=== PATIENT | male | born 1945 | race Caucasian/White ===

== ENCOUNTER 2023-12-18 02:29 | Emergency (ER) | payer OTHER, SELFPAY ==
[2023-12-18 02:32] VITALS: BP 146/86
--- NOTE | 2023-12-18 02:47 | ED.GENMED ---
History of Present Illness
General
Chief Complaint: Male Genito-Urinary Symptoms
Time Seen by Provider: 12/18/23 02:45
Travel History
Have you had any contact with someone who has COVID-19?: No
Do you have any symptoms of coronavirus? Fever > 100 degrees, chills, cough, shortness of breath, sore throat, loss of taste or smell, muscle aches, or headache?: No
History of Present Illness
History of Present Illness:
HPI: The patient presents with gross hematuria that started a couple of weeks ago which was mild and then became elevated more significant last week. He has a history of recent Mohs surgery. He is compliant with taking aspirin on a daily basis
related to coronary stents. He has no abdominal or flank pain. His symptoms worsened tonight to the point that he could not urinate however he then it was able to void some.
EXAM:
GENERAL: Well appearing in no distress
HEENT: Moist oral mucosa, ecchymosis noted in the right periorbital region along with surgical wound to the right forehead
ABDOMEN: Soft with no peritoneal signs, no tenderness, no CVA tenderness
NEUROLOGIC: Excellent strength all extremities, no coordination deficits
PSYCHIATRIC: Appropriate mental status, normal insight and judgement
EXTREMITIES: Nontender, no edema, moves all extremities equally
SKIN: No rash, no lesions
TIME OF INITIAL ENCOUNTER: 2:55 AM
NUMBER AND COMPLEXITY OF PROBLEMS ADDRESSED AT THE ENCOUNTER
� Chronic conditions affecting care: History of prostate cancer status post radiation COPD, CAD/GA, high blood pressure, diabetes
� Acute Exacerbation and/or Progression of Chronic Illness: This is an acute problem
� Differential Diagnosis includes: Hemorrhagic cystitis, gross hematuria, urinary retention
AMOUNT AND/OR COMPLEXITY OF DATA TO BE REVIEWED AND ANALYZED
� I performed an independent evaluation of and my interpretation is:
EKG:
CT:
X-rays:
Laboratory Studies: White count 10.8, hemoglobin normal at 15.5, platelets normal, renal function normal, urinalysis shows an abundance of red cells, 1+ leukocyte esterase noted
Other: Bladder scan 30+ mL urine
� Review of other/old records: No old records available for review in [facility]
� Clinical information was obtained by an independent historian: Spoke to at bedside
� Prescriptions/Medications Considered but not given:
� Further testing considered but not performed: Considered imaging however the patient has no pain and is not in retention
RISK OF COMPLICATIONS AND/OR MORBIDITY OR MORTALITY OF PATIENT MANAGEMENT
� Social determinants of health affecting care: Lives at home
� Discussion with other providers:
� Escalation of care including admission/observation vs risk of discharge considered: Bladder scan had only 30+ mL of urine. He has been seen by urologist at [place] but thinks he may have trouble getting into see them. I
have also given him contact information for local urologist. Unclear etiology of gross hematuria however he is not currently in retention.
Phy Exam
Physical Exam
Physical Exam:
See HPI
Course
Orders/Labs/Results
Orders:
Orders
12/18/23 03:13
Basic Metabolic Panel Urgent
Complete Blood Count/With Diff Urgent
Urinalysis Reflex To Culture Urgent
Date Specimen was Collected: 12/18/23
Time Specimen was Collected: 03:04
Urine Microscopic Reflex Cult Urgent
Urine Culture Urgent
SYLVIA Source: U
Specimen Description:
Date Specimen was Collected: 12/18/23
Time Specimen was Collected: 03:04
Abnormal Lab Results
12/18/23
03:13
Absolute Neuts (auto) 6.7 H 10^3/uL
(1.4-6.5)
Absolute Monos (auto) 0.9 H 10^3/uL
(0.1-0.6)
Glucose 128 H mg/dl
(70-99)
Urine Ketones Trace A
(Negative)
Ur Occult Blood Reflex 4+ A
(Negative)
Leukocyte Esterase Rfl 1+ A
(Negative)
Urine RBC >100 A /HPF
(0-2)
Urine Albumin (Reflex) 3+ A
(Neg - Trace)
12/18/23 03:13
12/18/23 03:13
Vital Signs
Initial and Last Documented VS:
Initial Vital Signs
Temp Pulse Resp BP Pulse Ox
98.1 F 76 16 146/86 92
12/18/23 02:32 12/18/23 02:32 12/18/23 02:32 12/18/23 02:32 12/18/23 02:32
Last Documented Vital Signs
Temp Pulse Resp BP Pulse Ox
98.1 F 76 16 146/86 92
12/18/23 02:32 12/18/23 02:32 12/18/23 02:32 12/18/23 02:32 12/18/23 02:32
*Critical Care Note
Total Time (30-74mins, 75-104mins- exclusive of procedures): Not Applicable
ED Attending Note
-
Portions of this chart may have been created with voice recognition software.� Occasional wrong word or��sound alike� substitutions may have occurred due to the inherent limitations of voice recognition software.
Discharge Plan
Departure
Patient Disposition: Home (Routine Discharge)
Date of Disposition: 12/18/23
Time of Disposition: 05:00
Patient with high blood pressure during this ER visit?: Yes
Discharge Problem:
Hematuria
Instructions: BLOOD PRESSURE
Prescriptions:
New
cephalexin 500 mg capsule
500 mg PO BID Qty: 14 0RF
No Action
atorvastatin 40 mg Tablet
40 mg PO QPM
metformin 500 mg Tablet
500 mg PO DAILY
amlodipine 5 mg Tablet
5 mg PO DAILY
aspirin 81 mg Tablet
81 mg PO DAILY
metoprolol succinate 25 mg Tablet Extended Release 24 Hr
25 mg PO BID
Referrals:
Wan Haines MD [Family Provider] -
Activity Restrictions/Additional Instructions:
Your white count, hemoglobin, platelet count and kidney function are all normal. Urinalysis shows blood in the urine without any definite sign of infection however it is tough to say that there is there is not an infection in the urine. The urine
culture will be pending. I recommend that you follow-up with either your [facility] urologist or a urologist with [facility]. I sent a prescription for an antibiotic to your pharmacy.
Interventions
Interventions:
*Risk Screen - Suicide Last Done: 12/18/23 02:32
*General Assessment Last Done: 12/18/23 02:32
*Neglect/Abuse Screening Last Done: 12/18/23 02:32
ED- Fall Risk Assessment Last Done: 12/18/23 03:10
ED-Male Genitourinary Assessment Last Done: 12/18/23 03:12
Discharge Date and Time
Print Language: SWEDISH
[2023-12-18 03:29] LABS: % Basophils 0.9 % (0-2); % Eosinophils 4.1 % (0-6); % Immature Granulocytes 0.4 % (0-0.5); % Lymphocytes 24.2 % (20.5-51.1); % Monocytes 8.5 % (1.7-9.3); % Neutrophils 61.9 % (42.2-75.2); Absolute Basophils 0.1 10^3/uL (0-0.2); Absolute Eosinophils 0.4 10^3/uL (0-0.7); Absolute Lymphocytes 2.6 10^3/uL (1.2-3.4); Absolute Monocytes 0.9 10^3/uL (0.1-0.6); Absolute Neutrophils 6.7 10^3/uL (1.4-6.5); Hematocrit 44.3 % (39.0-52.0); Hemoglobin 15.5 g/dL (13.0-18.0); Mean Corpuscular Hgb 30.1 pg (27.0-31.0); Mean Platelet Volume 9.3 fL (7.4-10.4); Nucleated Red Blood Cells % 0 % (-); Platelet Count 169 10^3/uL (130-400); Red Blood Cell Count 5.15 10^6/uL (4.70-6.10); Red Cell Dist. Width 13.2 % (11.5-14.5); White Blood Cell Count 10.8 10^3/uL (4.8-10.8)
[2023-12-18 03:37] LABS: Urine Albumin 3+ (Neg - Trace); Urine Bilirubin Negative (Negative); Urine Character Bloody (Clear); Urine Color Red; Urine Glucose Negative (Negative); Urine Ketone Trace (Negative); Urine Leukocyte 1+ (Negative); Urine Nitrite Negative (Negative); Urine Occult Blood 4+ (Negative); Urine Specific Gravity 1.015 (<1.030); Urine Urobilinogen Negative (Neg - 1+)
[2023-12-18 03:43] LABS: Urine Red Blood Cell >100 /HPF (0-2)
[2023-12-18 03:54] LABS: Blood Urea Nitrogen 19 mg/dl (9-20); Calcium 9.5 mg/dl (8.4-10.2); Carbon Dioxide 24 mmol/L (22-30); Chloride 105 mmol/L (98-107); Glucose 128 mg/dl (70-99); Potassium 4.3 mmol/L (3.5-5.1); Sodium 137 mmol/L (135-145); eGFR > 60.00
[2023-12-18] MEDS: KEFLEX 500 MG PO (05:08)
[2023-12-18 05:15] VITALS: BP 138/77
== END 2023-12-18 05:15 | disposition home or self-care (01) ==
LOC: EMR 02:29
PROVIDERS: EMERGENCY PHYSICIAN Emergency Medicine; FAMILY PHYSICIAN Internal Medicine
DX: R31.0 Gross hematuria (principal)
CPT/HCPCS: 99283; 80048; 81003; 81015; 85025; 87086

== ENCOUNTER → 2023-12-28 09:10 | Outpatient (REF) | payer OTHER, SELFPAY | LOC: HWRAD 09:10 | PROVIDERS: ATTENDING PHYSICIAN Specialist; FAMILY PHYSICIAN Internal Medicine | DX: R31.0 Gross hematuria (principal) | CPT/HCPCS: 74178; Q9967 ==

== ENCOUNTER 2024-02-02 06:09 | Day surgery (SDC) | payer OTHER, SELFPAY ==
[2024-01-31 10:11] LABS: APTT 30.5 Sec (23.4-35.0)
--- NOTE | 2024-02-01 08:15 | PTCARENOTE ---
Patients 01/30 EKG abnormal- reviewed by Dr. Ibanez, stated Ok if stable- no additional interventions indicated.
[2024-02-01 11:13] VITALS: BMI 25.9
[2024-02-02] VITALS (17 sets, daily range): BP systolic 97–189; BP diastolic 46–95; BMI 25.9
[2024-02-02 08:31] LABS: Glucose - Point of Care 122 mg/dl (70-99)
[2024-02-02] MEDS: NORMOSOL-R 1000 IV (08:39)
[2024-02-02] MEDS: CYSVIEW KIT 100 MG INTRAVES (08:53)
[2024-02-02] MEDS: SYRINGE NON-PUMP 50 ML IRRIG ×2 (11:24→11:25)
[2024-02-02] MEDS: SYRINGE NON-PUMP 50 MG IRRIG ×2 (11:24→11:25)
--- NOTE | 2024-02-02 11:31 | PTCARENOTE ---
Gemcitibine instilled by Dr Larsen at 1125, now dwelling x 45 min
[2024-02-02] MEDS: Pyridium 200 MG PO (12:28)
== END 2024-02-02 13:08 | disposition home or self-care (01) ==
LOC: SDS 06:09
PROVIDERS: ATTENDING PHYSICIAN Specialist; FAMILY PHYSICIAN Internal Medicine; OTHER PHYSICIAN Internal Medicine Cardiovascular Disease
DX: D29.1 Benign neoplasm of prostate (principal); C67.9 Malignant neoplasm of bladder, unspecified
CPT/HCPCS: 52601; 51720; 88307; 36415; 82962; 85610; 85730; 93005; A9589; J9201

== ENCOUNTER 2024-04-05 06:03 | Day surgery (SDC) | payer OTHER, SELFPAY ==
[2024-04-03 08:00] VITALS: BMI 26.7
[2024-04-03 10:42] LABS: Hematocrit 44.6 % (39.0-52.0); Hemoglobin 15.1 g/dL (13.0-18.0); Mean Corp Hgb Conc. 33.9 g/dL (33.0-37.0); Mean Corpuscular Hgb 30.7 pg (27.0-31.0); Mean Corpuscular Volume 90.7 fL (80.0-94.0); Mean Platelet Volume 10.2 fL (7.4-10.4); Platelet Count 195 10^3/uL (130-400); Red Blood Cell Count 4.92 10^6/uL (4.70-6.10); Red Cell Dist. Width 13.9 % (11.5-14.5); White Blood Cell Count 8.9 10^3/uL (4.8-10.8)
[2024-04-03 11:08] LABS: Blood Urea Nitrogen 16 mg/dl (9-20); Calcium 9.3 mg/dl (8.4-10.2); Carbon Dioxide 27 mmol/L (22-30); Chloride 103 mmol/L (98-107); Estimated Creatinine Clearance 68 ml/min; Glucose 98 mg/dl (70-99); Potassium 4.6 mmol/L (3.5-5.1); Sodium 141 mmol/L (135-145); eGFR > 60.00
[2024-04-05] VITALS (11 sets, daily range): BP systolic 97–141; BP diastolic 48–92; BMI 26.7
[2024-04-05 11:18] LABS: Glucose - Point of Care 112 mg/dl (70-99)
[2024-04-05] MEDS: CYSVIEW KIT 100 MG INTRAVES (11:25)
[2024-04-05] MEDS: TYLENOL 1000 MG PO (11:29)
[2024-04-05] MEDS: NORMOSOL-R/PLASMALYTE-A 1000 IV (11:42)
[2024-04-05] MEDS: SYRINGE NON-PUMP 50 MG IRRIG (12:54)
[2024-04-05] MEDS: SYRINGE NON-PUMP 50 ML IRRIG (12:54)
[2024-04-05 13:08] LABS: Glucose - Point of Care 124 mg/dl (70-99)
[2024-04-05] MEDS: Pyridium 200 MG PO (13:27)
--- NOTE | 2024-04-05 13:34 | SUR.PHASEI ---
Awake, denies c/o discomfort, blaise ice chips well, reassure, encouraged to try and sleep, warm blankets given
--- NOTE | 2024-04-05 13:46 | SUR.PHASEI ---
Lightly dozing, vss, SAO2 92-95% on ra
== END 2024-04-05 15:35 | disposition home or self-care (01) ==
LOC: SDS 06:03
PROVIDERS: ATTENDING PHYSICIAN Specialist; FAMILY PHYSICIAN Internal Medicine
DX: C67.3 Malignant neoplasm of anterior wall of bladder (principal); N30.40 Irradiation cystitis without hematuria; Y84.2 Radiological procedure and radiotherapy as the cause of abnormal reaction of the patient, or of later complication, without mention of misadventure at the time of the procedure
CPT/HCPCS: 52234; 88307; 36415; 80048; 82962; 85027; 87070; A9589

== ENCOUNTER 2024-04-05 23:12 | Emergency (ER) | payer OTHER, SELFPAY ==
[2024-04-05 23:18] VITALS: BP 163/85
--- NOTE | 2024-04-05 23:54 | ED.GENMED ---
History of Present Illness
General
Chief Complaint: Male Genito-Urinary Symptoms
Source: patient
Time Seen by Provider: 04/05/24 23:17
History of Present Illness
History of Present Illness:
79-year-old male with past medical history of bladder cancer, COPD, CAD, hypertension, hyperlipidemia, [place], diabetes status post tumor removal today and, presenting to the ER after being unable to urinate since having Sifuentes catheter removed
postoperatively around 2 PM patient reports an intense sensation of needing to urinate but being unable to do so. Denies any fevers, chills, rigors or any other symptoms.
Past History
Past History
ED Past Medical History: CAD, Cancer, COPD, HTN, Hypercholesterolemia, NIDDM and [place]
ED Past Surgical History: Orthopedic and Urological
Social History
Tobacco: Smoker
Alcohol: None
Drug: None
Personal:
Living: with family
Review of Systems
Review of Systems
All Other Systems: ROS reviewed and negative except as documented in HPI and ROS
Phy Exam
Physical Exam
Physical Exam:
GENERAL: Alert , in no apparent distress
EYE: conjunctiva clear
Head: Normocephalic atraumatic
NECK: Supple,
ENT: mmm.
LUNGS: no acute respiratory distress
Abdomen: Suprapubic fullness and tenderness
NEUROLOGICAL: Alert and oriented
SKIN: Warm and dry, skin intact.
MUSCULOSKELETAL: well perfused.
PSYCH: Normal and appropriate interaction.
Scores
Heart Failure Risk
Heart Failure Risk Score: Not Applicable
Heart Score for Chest Pain Patients
STEMI patient?: Not applicable
Withdrawal Assessment of Alcohol
Withdrawal Assessment Completed?: Not applicable
Course
Orders/Labs/Results
Orders:
Orders
04/05/24 23:54
Sifuentes Placement- Treatment ONCE
Reason for insertion: Acute Retention
Lidocaine 2% [Lidocaine Uro-Jet 2%] 1 syringe .ROUTE .STK-MED ONE
Vital Signs
Initial and Last Documented VS:
Initial Vital Signs
Temp Pulse Resp BP Pulse Ox
97.7 F 85 18 163/85 93
04/05/24 23:18 04/05/24 23:18 04/05/24 23:18 04/05/24 23:18 04/05/24 23:18
Last Documented Vital Signs
Temp Pulse Resp BP Pulse Ox
97.7 F 80 17 143/78 94
04/05/24 23:18 04/06/24 00:20 04/06/24 00:20 04/06/24 00:20 04/06/24 00:20
MDM/Problems Addressed
MDM/Problems Addressed:
79-year-old male presenting to the emergency department for evaluation of inability to urinate on his own since 2 PM after procedure today. Patient's bladder scan reveals greater than [address] Sifuentes catheter and have this
remained in place. Advised patient contact urology, Dr. Larsen, in the morning to help facilitate outpatient management. Patient will be able to be discharged home following catheter placement.
*Pulse Oximetry
Patient hypoxic: no
*Critical Care Note
Total Time (30-74mins, 75-104mins- exclusive of procedures): Not Applicable
Data Reviewed
Review of Other/Old Records Reveals: Labs, Records and Operative Reports
Source: patient, records and spouse
Patient Management
Escalation/DeEscalation of care consider admission/obs:
sifuentes catheter placed without difficulty. returned yellow/orange urine that was blood tinged towards the end. Follow up with urology. Call office in AM. Aware of return precautions
ED Attending Note
-
Portions of this chart may have been created with voice recognition software.� Occasional wrong word or��sound alike� substitutions may have occurred due to the inherent limitations of voice recognition software.
Discharge Plan
Departure
Patient Disposition: Home (Routine Discharge)
Date of Disposition: 04/06/24
Time of Disposition: 00:37
Patient with high blood pressure during this ER visit?: Yes
Discharge Problem:
Acute urinary retention
Instructions: How to Care for Your Sifuentes Catheter, Male
Prescriptions:
No Action
atorvastatin 40 mg Tablet
40 mg PO QPM
metformin 500 mg Tablet
500 mg PO DAILY
amlodipine 5 mg Tablet
5 mg PO DAILY
metoprolol succinate 25 mg Tablet Extended Release 24 Hr
25 mg PO BID
multivitamin Tablet
1 tab PO DAILY
ascorbic acid (vitamin C) [Vitamin C] 500 mg Tablet
500 mg PO DAILY
Probiotic Complex 25 billion cell -100 mg Capsule
1 cap PO DAILY
aspirin [Aspir-81] 81 mg Tablet,Delayed Release (Dr/Ec)
81 mg PO DAILY
Ultimate Eye Support With Astaxanthin
2 tab PO DAILY
Referrals:
Patrick Larsen MD [Active] - (Please call in the morning for an appointment)
Wan Haines MD [Family Provider] -
Interventions
Interventions:
*Risk Screen - Suicide Last Done: 04/05/24 23:18
*General Assessment Last Done: 04/05/24 23:18
*Neglect/Abuse Screening Last Done: 04/05/24 23:18
ED-Male Genitourinary Assessment Last Done: 04/06/24 00:00
Discharge Date and Time
Print Language: MAORI
[2024-04-06 00:20] VITALS: BP 143/78
[2024-04-06 01:30] VITALS: BP 130/84
== END 2024-04-06 01:40 | disposition home or self-care (01) ==
LOC: EMR 23:12
PROVIDERS: EMERGENCY PHYSICIAN Emergency Medicine; FAMILY PHYSICIAN Internal Medicine
DX: R33.8 Other retention of urine (principal); I10 Essential (primary) hypertension; J44.9 Chronic obstructive pulmonary disease, unspecified; I25.2 Old myocardial infarction; E11.9 Type 2 diabetes mellitus without complications; F17.200 Nicotine dependence, unspecified, uncomplicated
CPT/HCPCS: 99283; 51798; 51702

== ENCOUNTER 2024-12-19 17:51 | Emergency (ER) | payer MEDICARE, SELFPAY ==
[2024-12-19 17:53] VITALS: BP 163/89
[2024-12-19 18:41] VITALS: BP 153/71
[2024-12-19 19:00] VITALS: BP 161/78
--- NOTE | 2024-12-19 20:21 | ED.GENMED ---
History of Present Illness
General
Chief Complaint: Back Pain
Source: patient and spouse
Time Seen by Provider: 12/19/24 19:49
History of Present Illness
History of Present Illness:
Note:
CHIEF COMPLAINT(S)
Back pain radiating to the left lower buttock area.
HISTORY OF PRESENT ILLNESS
The patient is a 79-year-old male presenting with acute onset severe back pain that radiates to the left buttock, beginning unexpectedly a few days ago. The patient describes the pain as being glenys to a 'really deep bruise' and expresses concern due
to a history of spine surgery, including swetha placement and infection within one of the rods. There has been no trauma but the patient experiences increased pain with movement. The patient reports a sensation of paresthesia to the right thigh
intermittently, none currently. The patient denies any bowel or bladder incontinence and any recent fever (with a recorded temperature of 98�F). The patient was scheduled to undergo cystoscopy with urology tomorrow morning for bladder cancer reports
calling the office to reschedule this visit, left a voicemail but did not speak to anybody at the office. Patient did not take anything for his pain at home due to him being unable to take any anti-inflammatories prior to his procedure.
ADDITIONAL HISTORY OBTAINED FROM SOURCES OTHER THAN THE PATIENT
Per the spouse, the patient had spine surgery with rods placed two years ago on one side followed by another procedure to adjust hardware 2/2 infection.
SOCIAL DETERMINANTS AFFECTING HEALTH
The patient has bladder cancer and was scheduled for related surgery tomorrow. Due to the back pain, the surgery was postponed, which may impact the patients healthcare due to the need for further evaluation and imaging for the back pain.
REVIEW OF SYSTEMS
- Musculoskeletal: Severe back pain radiating to the left buttock, increased with movement. History of spine surgery.
- Neurological: Occasional slight tingle in the left groin area, no voluntary loss of sensation or motor function.
- Constitutional: Fever initially suspected but not confirmed.
Past History
Past History
ED Past Medical History: CAD, Cancer, COPD, HTN, Hypercholesterolemia, NIDDM and [place]
ED Past Surgical History: Orthopedic and Urological
Social History
Tobacco: Smoker
Alcohol: None
Drug: None
Personal:
Living: with family
Review of Systems
Review of Systems
All Other Systems: ROS reviewed and negative except as documented in HPI and ROS
Phy Exam
Physical Exam
Physical Exam:
GENERAL: Alert , in no apparent distress but does appear uncomfortable which seems worse with any attempted movements
HEAD: NCAT
EYE: clear conjunctiva b/l
NECK: Supple
ENT: o/p clr, mmm.
CARDIAC: Regular rate and rhythm .
LUNGS: Clear breath sounds bilaterally, no acute respiratory distress, no wheezes/rales/rhonchi
ABDOMEN: Soft, without focal tenderness, no r/g, no cvat
BACK: Clearly reproducible tenderness within the left paralumbar region down in towards the left buttock/sacrum, no midline bony tenderness, no rashes
NEUROLOGICAL: Alert and oriented, no focal neuro deficits. Patellar deep tendon reflexes intact and equal bilaterally, sensation grossly intact and equal to light touch bilateral lower extremities
SKIN: Warm and dry, skin intact.
MUSCULOSKELETAL: No edema, well perfused. EHL intact bilaterally
PSYCH: Normal and appropriate interaction.
Scores
Heart Failure Risk
Heart Failure Risk Score: Not Applicable
Heart Score for Chest Pain Patients
STEMI patient?: Not applicable
Withdrawal Assessment of Alcohol
Withdrawal Assessment Completed?: Not applicable
Course
Orders/Labs/Results
Orders:
Orders
12/19/24 20:15
Dexamethasone Sod Phosphate [Decadron] 10 mg IM NOW STA
Lidocaine [Lidocaine 4% Patch] 1 patch TOPICAL NOW STA
Apply Lidocaine patch(s) to:: left lower back
Oxycodone/Acetaminophen [Percocet 5/325] 1 tablet PO NOW STA
CR Lumbar Spine Comp Min 4 Vw* Urgent
Comment:
Reason For Exam: low back pain, previous surgery
12/19/24 21:31
CR Hip - LT w/wo Pel 2-3 Vw* Urgent
Comment:
Reason For Exam: pain
Include a pelvis x-ray?: Yes
Vital Signs
Initial and Last Documented VS:
Initial Vital Signs
Temp Pulse Resp BP Pulse Ox
98.3 F 73 18 163/89 94
12/19/24 17:53 12/19/24 17:53 12/19/24 17:53 12/19/24 17:53 12/19/24 17:53
Last Documented Vital Signs
Temp Pulse Resp BP Pulse Ox
98.3 F 73 18 161/78 93
12/19/24 17:53 12/19/24 17:53 12/19/24 17:53 12/19/24 19:00 12/19/24 20:00
MDM/Problems Addressed
Differential Diagnosis Includes:
The Differential Diagnosis includes, in no particular order and is not limited to:
1. Lower back musculoskeletal strain.
2. Post-surgical hardware complication.
3. Intervertebral disc herniation.
4. Spinal stenosis.
5. Epidural abscess.
6. Spinal osteomyelitis.
7. Facet joint syndrome.
8. Degenerative disc disease.
9. Cauda equina syndrome.
10. Osteoporotic vertebral fracture.
MDM/Problems Addressed:
- Obtain an X-ray of the spine to assess for any fracture or hardware-related issues. Patient without any current fevers or infectious symptoms or any outward signs on physical exam to suggest an infectious etiology but this is certainly on
differential given his history of infection within the hardware.
- Administer pain relief, including Percocet or Vicodin, muscle relaxants, and consider sending a steroid to pharmacy to manage inflammation.
- Advise the patient to contact their primary care physician to arrange for an MRI and further detailed evaluation as needed.
- Send messaging to Dr. Larsen, the patients urologist, to inform about the patients current status and inability to proceed with scheduled surgery.
- Encourage follow-up with the family physician to manage advanced imaging needs and further evaluation.
Chronic conditions affecting care: Other (Previous back surgery)
*Radiology
Radiology exam reviewed: preliminary read by ED provider (Significant degenerative changes of the lumbosacral spine)
*Pulse Oximetry
Patient hypoxic: no
Comment: 94-95%
*Critical Care Note
Total Time (30-74mins, 75-104mins- exclusive of procedures): Not Applicable
Data Reviewed
Review of Other/Old Records Reveals: Radiology Studies
Source: patient and records
Patient Management
Discussion with other providers: Hall Director
Escalation/DeEscalation of care consider admission/obs:
Patient with mild improvement following medication administration. X-rays did show significant degenerative changes which I suspect is the likely cause of patient's current pain. Was advised on return precautions to the ER. Given information for
back specialist and pain management to follow-up with. I did also notify patient's urologist about patient's plan to cancel his surgical appointment tomorrow and that he would call the office to reschedule.
ED Attending Note
-
Portions of this chart may have been created with voice recognition software.� Occasional wrong word or��sound alike� substitutions may have occurred due to the inherent limitations of voice recognition software.
Discharge Plan
Departure
Patient Disposition: Home (Routine Discharge)
Date of Disposition: 12/19/24
Time of Disposition: 21:57
Patient with high blood pressure during this ER visit?: Yes
Discharge Problem:
Dorsalgia of lumbosacral region
Instructions: Low Back Pain (DC)
Prescriptions:
New
oxycodone-acetaminophen [Percocet] 5-325 mg tablet
1 tab PO Q6HPRN PRN (Reason: pain) Qty: 8 0RF
methylprednisolone [Medrol (Twin)] 4 mg tablets,dose pack
4 mg PO DIRECTED Qty: 21 0RF
No Action
atorvastatin 40 mg Tablet
40 mg PO QPM
metformin 500 mg Tablet
500 mg PO DAILY
amlodipine 5 mg Tablet
5 mg PO DAILY
metoprolol succinate 25 mg Tablet Extended Release 24 Hr
25 mg PO BID
multivitamin Tablet
1 tab PO DAILY
ascorbic acid (vitamin C) [Vitamin C] 500 mg Tablet
500 mg PO DAILY
Probiotic Complex 25 billion cell -100 mg Capsule
1 cap PO DAILY
aspirin [Aspir-81] 81 mg Tablet,Delayed Release (Dr/Ec)
81 mg PO DAILY
Ultimate Eye Support With Astaxanthin
2 tab PO DAILY
Jardiance 10 mg Tablet
10 mg PO DAILY
turmeric root extract 500 mg Tablet
500 mg PO DAILY
Referrals:
Marvin Quezada MD [Active, Anesthesiology]
Referral Note: Pain Management
Wan Haines MD [Family Provider, Internal Medicine]
John Garcia MD [Active, Orthopedics]
Referral Note: [facility]
Interventions
Interventions:
*Risk Screen - Suicide Last Done: 12/19/24 17:53
*General Assessment Last Done: 12/19/24 18:38
*Neglect/Abuse Screening Last Done: 12/19/24 17:53
*ED- Fall Risk Assessment Last Done: 12/19/24 18:38
*ED COVID-19 Vaccine History Last Done: 12/19/24 18:38
*Nursing Disposition Last Done: 12/19/24 22:09
ED-Musculoskeletal Assessment Last Done: 12/19/24 18:39
Discharge Date and Time
Discharge Date/Time: 12/19/24 22:09
Print Language: MALDIVIAN
[2024-12-19] MEDS: PERCOCET 5/325 1 TABLET PO (20:31)
[2024-12-19] MEDS: DECADRON 10 MG IM (20:31)
[2024-12-19] MEDS: LIDOCAINE 4% PATCH 1 PATCH TOPICAL (20:31)
== END 2024-12-19 22:09 | disposition home or self-care (01) ==
LOC: EMR 17:51
PROVIDERS: EMERGENCY PHYSICIAN Emergency Medicine; FAMILY PHYSICIAN Internal Medicine
DX: M54.50 Low back pain, unspecified (principal); I10 Essential (primary) hypertension; F17.200 Nicotine dependence, unspecified, uncomplicated; C67.9 Malignant neoplasm of bladder, unspecified
CPT/HCPCS: 99284; 96372; 72110; 73502

== ENCOUNTER 2025-01-17 06:32 | Day surgery (SDC) | payer MEDICARE, SELFPAY ==
[2024-12-11 08:52] LABS: Hematocrit 50.5 % (39.0-52.0); Hemoglobin 16.7 g/dL (13.0-18.0); Mean Corp Hgb Conc. 33.1 g/dL (33.0-37.0); Mean Corpuscular Volume 89.4 fL (80.0-94.0); Platelet Count 160 10^3/uL (130-400); Red Cell Dist. Width 14.4 % (11.5-14.5)
[2024-12-11 09:21] LABS: Blood Urea Nitrogen 17 mg/dl (9-20); Calcium 9.4 mg/dl (8.4-10.2); Carbon Dioxide 24 mmol/L (22-30); Chloride 108 mmol/L (98-107); Glucose 128 mg/dl (70-99); Potassium 4.6 mmol/L (3.5-5.1); Sodium 141 mmol/L (135-145); eGFR > 60.00
--- NOTE | 2024-12-11 13:27 | PTCARENOTE ---
Patients 12/11 ECG abnormal- reviewed by Dr. Del Toro- no additional interventions required
[2024-12-11 13:44] VITALS: BMI 26.6
[2025-01-17] VITALS (10 sets, daily range): BP systolic 107–174; BP diastolic 63–90; BMI 26.6
[2025-01-17 07:32] LABS: Glucose - Point of Care 106 mg/dl (70-99)
[2025-01-17] MEDS: CYSVIEW KIT 100 MG INTRAVES (07:46)
[2025-01-17] MEDS: NORMOSOL-R/PLASMALYTE-A 1000 IV (07:47)
[2025-01-17] MEDS: DUONEB 3 ML INH (08:05)
[2025-01-17] MEDS: SYRINGE NON-PUMP 50 MG IRRIG ×2 (09:45→09:46)
[2025-01-17] MEDS: SYRINGE NON-PUMP 50 ML IRRIG ×2 (09:45→09:46)
[2025-01-17 09:57] LABS: Glucose - Point of Care 129 mg/dl (70-99)
== END 2025-01-17 12:10 | disposition home or self-care (01) ==
LOC: SDS 06:32
PROVIDERS: ATTENDING PHYSICIAN Specialist; FAMILY PHYSICIAN Internal Medicine
DX: C67.9 Malignant neoplasm of bladder, unspecified (principal); N32.89 Other specified disorders of bladder
CPT/HCPCS: 52234; 51720; C9738; 80048; 82962; 85027; 87070; 88307; 93005; 94640; A9589; J9201

== ENCOUNTER 2025-05-17 15:57 | Emergency (ER) | payer MEDICARE, SELFPAY ==
[2025-05-17 16:01] VITALS: BP 170/83
[2025-05-17 16:52] VITALS: BP 150/99
[2025-05-17 16:53] VITALS: BMI 24.7
[2025-05-17 17:14] LABS: Hematocrit 52.0 % (39.0-52.0); Hemoglobin 17.5 g/dL (13.0-18.0); Mean Corp Hgb Conc. 33.7 g/dL (33.0-37.0); Mean Corpuscular Volume 88.6 fL (80.0-94.0); Nucleated Red Blood Cells % 0 % (-); Platelet Count 178 10^3/uL (130-400); Red Cell Dist. Width 13.3 % (11.5-14.5)
[2025-05-17 17:15] LABS: Urine Character Slightly Cloudy (Clear)
--- NOTE | 2025-05-17 17:22 | ED.GENMED ---
History of Present Illness
<Willy Hernandez PA-C - Last Filed: 05/17/25 21:21>
General
Chief Complaint: Abdominal Pain
Source: patient
Time Seen by Provider: 05/17/25 17:14
History of Present Illness
History of Present Illness:
80-year-old male with past medical history of COPD, CAD status post previous GA, hypertension, hyperlipidemia, jcy-[id number]-[id number] diabetes, previous prostate and bladder cancer presenting to the emergency department for evaluation of of 3 days of
right sided lower back/flank pain that awoke him from sleep around 3 AM after he had started to turn over and during that 3 days pain has now started to present itself within the right groin/lower abdomen and gradually worsening which is why he
decided come to the ER. He notes that the only other symptom that he noticed is some mild nausea but denies this currently as well as states that he has had less bowel movements throughout the day and feels that his bowel movements are less than
usual. He denies any urinary symptoms, fevers, rigors, urinary frequency/urgency or dysuria, melena or hematochezia. Tried a heating pad with some relief. No other concerns.
Past History
<Willy Hernandez PA-C - Last Filed: 05/17/25 21:21>
Past History
ED Past Medical History: CAD, Cancer, COPD, HTN, Hypercholesterolemia, NIDDM and GA
ED Past Surgical History: Cardiac, Orthopedic and Urological
Social History
Tobacco: Smoker
Alcohol: None
Drug: None
Personal:
Living: with family
Review of Systems
<Willy Hernandez PA-C - Last Filed: 05/17/25 21:21>
Review of Systems
All Other Systems: ROS reviewed and negative except as documented in HPI and ROS
Phy Exam
<Willy Hernandez PA-C - Last Filed: 05/17/25 21:21>
Physical Exam
Physical Exam:
GENERAL: Alert , in no apparent distress
EYE: clear conjunctiva b/l
HEAD: NCAT
ENT: o/p clr, mmm.
CARDIAC: Regular rate and rhythm .
LUNGS: Clear breath sounds bilaterally, no acute respiratory distress, no wheezes/rales/rhonchi
ABDOMEN: Soft, without focal tenderness, no r/g, no cvat
GENITOURINARY: Circumcised, no hernias appreciated, no tenderness to the testicle or edema of the testicle bilaterally
NEUROLOGICAL: Alert and oriented
SKIN: Warm and dry, skin intact.
MUSCULOSKELETAL: No edema, well perfused. Patient states that with flexion of the right hip he did feel the discomfort within the right lower back
PSYCH: Normal and appropriate interaction.
Scores
<Willy Hernandez PA-C - Last Filed: 05/17/25 21:21>
Heart Failure Risk
Heart Failure Risk Score: Not Applicable
Heart Score for Chest Pain Patients
STEMI patient?: Not applicable
Withdrawal Assessment of Alcohol
Withdrawal Assessment Completed?: Not applicable
Course
<Willy Hernandez PA-C - Last Filed: 05/17/25 21:21>
Orders/Labs/Results
Orders:
Orders
05/17/25 17:06
CMP [Comprehensive Metabolic Panel] Urgent
Complete Blood Count/With Diff Urgent
Urinalysis Reflex To Culture Urgent
Date Specimen was Collected: 05/17/25
Time Specimen was Collected: 16:58
Urine Microscopic Reflex Cult Urgent
05/17/25 17:21
CT Abd/pelvis W Iv Cont Urgent
Comment:
Reason For Exam: right sided pelvic pain/groin pain
Abnormal Lab Results
05/17/25
17:06
Absolute Neuts (auto) 7.3 H 10^3/uL
(1.4-6.5)
Absolute Monos (auto) 0.7 H 10^3/uL
(0.1-0.6)
Lymphocytes % 19.8 L %
(20.5-51.1)
Potassium 5.2 H mmol/L
(3.5-5.1)
Glucose 108 H mg/dl
(70-99)
Alkaline Phosphatase 163 H U/L
(38-126)
Urine Ketones 2+ A
(Negative)
Urine Bacteria (Reflex) Few A
(Negative)
Urine Glucose 4+ A
(Negative)
Urine Albumin (Reflex) 2+ A
(Neg - Trace)
05/17/25 17:06
05/17/25 17:06
Vital Signs
Initial and Last Documented VS:
Initial Vital Signs
Temp Pulse Resp BP Pulse Ox
97.6 F 88 18 170/83 95
05/17/25 16:01 05/17/25 16:01 05/17/25 16:01 05/17/25 16:01 05/17/25 16:01
Last Documented Vital Signs
Temp Pulse Resp BP Pulse Ox
97.6 F 88 18 150/99 94
05/17/25 16:01 05/17/25 16:01 05/17/25 16:01 05/17/25 16:52 05/17/25 17:23
<Roberth Cano MD - Last Filed: 05/17/25 19:24>
Orders/Labs/Results
Orders:
Orders
05/17/25 17:06
CMP [Comprehensive Metabolic Panel] Urgent
Complete Blood Count/With Diff Urgent
Urinalysis Reflex To Culture Urgent
Date Specimen was Collected: 05/17/25
Time Specimen was Collected: 16:58
Urine Microscopic Reflex Cult Urgent
05/17/25 17:21
CT Abd/pelvis W Iv Cont Urgent
Comment:
Reason For Exam: right sided pelvic pain/groin pain
Abnormal Lab Results
05/17/25
17:06
Absolute Neuts (auto) 7.3 H 10^3/uL
(1.4-6.5)
Absolute Monos (auto) 0.7 H 10^3/uL
(0.1-0.6)
Lymphocytes % 19.8 L %
(20.5-51.1)
Potassium 5.2 H mmol/L
(3.5-5.1)
Glucose 108 H mg/dl
(70-99)
Alkaline Phosphatase 163 H U/L
(38-126)
Urine Ketones 2+ A
(Negative)
Urine Bacteria (Reflex) Few A
(Negative)
Urine Glucose 4+ A
(Negative)
Urine Albumin (Reflex) 2+ A
(Neg - Trace)
05/17/25 17:06
05/17/25 17:06
Vital Signs
Initial and Last Documented VS:
Initial Vital Signs
Temp Pulse Resp BP Pulse Ox
97.6 F 88 18 170/83 95
05/17/25 16:01 05/17/25 16:01 05/17/25 16:01 05/17/25 16:01 05/17/25 16:01
Last Documented Vital Signs
Temp Pulse Resp BP Pulse Ox
97.6 F 88 18 150/99 94
05/17/25 16:01 05/17/25 16:01 05/17/25 16:01 05/17/25 16:52 05/17/25 17:23
<Willy Hernandez PA-C - Last Filed: 05/17/25 21:21>
MDM/Problems Addressed
Differential Diagnosis Includes:
Renal/ureteral colic
UTI
Colitis
Musculoskeletal etiology
Appendicitis
Hernia
Malignancy
MDM/Problems Addressed:
80-year-old male presenting to the ER for evaluation of right flank pain that is now within the right lower quadrant and groin, symptoms worse with movement, patient reporting some less bowel movements but still going daily. He is in no acute
distress and overall well-appearing. Labs initiated in triage as well as urinalysis. Will add CT scan on. Disposition pending.
<Willy Hernandez PA-C - Last Filed: 05/17/25 21:21>
*Radiology
Radiology exam reviewed: radiology read reviewed
*Pulse Oximetry
SaO2: 94
Oxygen Mode of Delivery: Room air
Patient hypoxic: no
*Critical Care Note
Total Time (30-74mins, 75-104mins- exclusive of procedures): Not Applicable
Data Reviewed
Review of Other/Old Records Reveals: Labs and Radiology Studies
<Willy Hernandez PA-C - Last Filed: 05/17/25 21:21>
Patient Management
Escalation/DeEscalation of care consider admission/obs:
CT scan without any acute findings. Patient to follow-up with his primary care provider. Aware of return precautions.
ED Attending Note
<Willy Hernandez PA-C - Last Filed: 05/17/25 21:21>
-
Portions of this chart may have been created with voice recognition software.� Occasional wrong word or��sound alike� substitutions may have occurred due to the inherent limitations of voice recognition software.
<Roberth Cano MD - Last Filed: 05/17/25 19:24>
ED Attending Note
Patient seen and examined by attending physician: Yes
ED Attending Note:
I have seen and evaluated the patient with a [id number] encounter. I have spoken to the advance practicer provider and involved in the medical history, the physical exam, medical decision making.
Evaluation and management service: agree unless noted differently below.
Results interpretation: agree unless noted differently below.
Focused HPI: 80-year-old male with history as noted presents to the emergency department with right buttock/hip pain. Patient reports that on Wednesday he rolled over in bed and he felt a sharp pain in the right buttock area. He says the next day he
woke up and the pain was radiating towards the right groin/hip. He says pain has been consistent since then which prompted him to come to the ER for evaluation. He denies urinary symptoms. He says he has been mildly constipated recently but no
other acute symptoms noted.
Physical exam: Awake and alert not in distress. Abdomen soft and nontender. He has some focal tenderness in the right SI joint. He is strong pulses throughout the lower extremities and no edema in the legs.
Medical Decision Makin-year-old male presents with right buttock/hip pain as described above after rolling over in bed Wednesday. Labs were sent off which showed no clinically significant abnormalities. Urinalysis contaminated but no signs of
infection. CT shows no kidney stones or other acute abnormalities. Note was made of tortuous aorta but patient clinically is not describing anything that sounds like claudication symptoms and has strong pulses in the legs. Suspect that this is a
muscular strain. Stable for discharge with supportive care.
Discharge Plan
Departure
Patient Disposition: Home (Routine Discharge)
Date of Disposition: 05/17/25
Time of Disposition: 19:20
Patient with high blood pressure during this ER visit?: Yes
Discharge Problem:
Abdominal pain
Instructions: Abdominal Pain
Prescriptions:
No Action
atorvastatin 40 mg Tablet
40 mg PO QPM
metformin 500 mg Tablet
500 mg PO DAILY
amlodipine 5 mg Tablet
5 mg PO DAILY
metoprolol succinate 25 mg Tablet Extended Release 24 Hr
25 mg PO BID
multivitamin Tablet
1 tab PO DAILY
ascorbic acid (vitamin C) [Vitamin C] 500 mg Tablet
500 mg PO DAILY
Probiotic Complex 25 billion cell -100 mg Capsule
1 cap PO DAILY
aspirin [Aspir-81] 81 mg Tablet,Delayed Release (Dr/Ec)
81 mg PO DAILY
Ultimate Eye Support With Astaxanthin
2 tab PO DAILY
Jardiance 10 mg Tablet
10 mg PO DAILY
turmeric root extract 500 mg Tablet
500 mg PO DAILY
Referrals:
NONE,* [Active, Internal Medicine]
Interventions
Interventions:
*Risk Screen - Suicide Last Done: 05/17/25 16:01
*General Assessment Last Done: 05/17/25 16:01
*Neglect/Abuse Screening Last Done: 05/17/25 19:28
*ED- Fall Risk Assessment Last Done: 05/17/25 16:54
*ED COVID-19 Vaccine History Last Done: 05/17/25 16:54
*ED Influenza Vaccine History Last Done: 05/17/25 16:54
*Nursing Disposition Last Done: 05/17/25 19:28
LL-Ieerfo-Rteubuwwdd Assessment Last Done: 05/17/25 16:54
Discharge Date and Time
Discharge Date/Time: 05/17/25 19:29
Print Language: [place]
[2025-05-17 17:26] LABS: Urine Red Blood Cell 0-2 /HPF (0-2); Urine Squamous Cell 0-2 /LPF (Few); Urine Urothelial Cell 0-2 /LPF (FEW)
[2025-05-17 17:34] LABS: ALT (SGPT) 27 U/L (0-50); AST (SGOT) 27 U/L (17-59); Albumin 4.7 g/dl (3.5-5.0); Alkaline Phosphatase 163 U/L (38-126); Blood Urea Nitrogen 20 mg/dl (9-20); Calcium 9.7 mg/dl (8.4-10.2); Carbon Dioxide 27 mmol/L (22-30); Chloride 103 mmol/L (98-107); Estimated Creatinine Clearance 71 ml/min; Glucose 108 mg/dl (70-99); Potassium 5.2 mmol/L (3.5-5.1); Sodium 136 mmol/L (135-145); Total Protein 7.8 g/dl (6.3-8.2); eGFR > 60.00
== END 2025-05-17 19:29 | disposition home or self-care (01) ==
LOC: EMR 15:57
PROVIDERS: EMERGENCY PHYSICIAN Emergency Medicine; FAMILY PHYSICIAN Internal Medicine
DX: R10.A1 Flank pain, right side (principal); M54.50 Low back pain, unspecified; E11.9 Type 2 diabetes mellitus without complications; E78.00 Pure hypercholesterolemia, unspecified; I10 Essential (primary) hypertension; I25.10 Atherosclerotic heart disease of native coronary artery without angina pectoris; F17.200 Nicotine dependence, unspecified, uncomplicated; J44.9 Chronic obstructive pulmonary disease, unspecified; I25.2 Old myocardial infarction; Z85.46 Personal history of malignant neoplasm of prostate; Z85.51 Personal history of malignant neoplasm of bladder; Z98.1 Arthrodesis status
CPT/HCPCS: 99284; 74177; 80053; 81003; 81015; 85025; Q9967